=== PATIENT | male | born 1955 | race Caucasian/White ===

== ENCOUNTER 2023-02-20 06:14 | Day surgery (SDC) | payer OTHER, SELFPAY ==
--- NOTE | 2023-02-19 09:22 | HO.ANESPROP2 ---
HPI - Anesthesia Eval Consult details Narrative: 68yo M for Colonoscopy PMFSH Past Medical History Medical History Asthma Diabetes Elevated cholesterol Environmental allergies Fatty liver GERD (gastroesophageal reflux disease) History of anal fissures Surgical History Surgical History Hx of colonoscopy Social History Social History Patient Tobacco Use Status: Never used Tobacco Use of substances other than those prescribed or required for medical reasons: No Are you DNR?: No Advance Directives: No Advance Directives Information Provided: Yes Meds Allergies Allergy/AdvReac Type Severity Reaction Status Date / Time No Known Allergies Allergy Verified 02/20/23 06:29 Home Medications Medication Instructions Recorded Confirmed Last Taken Type albuterol sulfate 90 mcg/actuation 1 inh inhalation Q4-6H PRN 02/19/23 02/19/23 Unknown History aerosol inhaler Shortness Of Breath Or Wheezing aspirin 81 mg tablet,delayed 81 mg PO DAILY 02/19/23 02/19/23 02/15/23 History release atorvastatin 10 mg tablet 10 mg PO BEDTIME 02/19/23 02/19/23 Unknown History famotidine 40 mg tablet 40 mg PO BEDTIME 02/19/23 02/19/23 Unknown History fluticasone propionate 110 2 puff inhalation BID 02/19/23 02/19/23 Unknown History mcg/actuation HFA aerosol inhaler (Flovent HFA) levocetirizine 5 mg tablet (Xyzal) 5 mg PO DAILY 02/20/23 02/20/23 Unknown History Exam Exam Date and Time: February 19, [id number] Assessment and Plan Assessment Anesthesia Assessment: Chart Reviewed
[2023-02-20 06:32] VITALS: BMI 31.8
[2023-02-20 06:36] VITALS: BP 139/87; PULSE 91; RESP 15; TEMP 36.3; O2SAT 99
[2023-02-20] MEDS: Lactated Ringers 1,000 ML 100 ML IVCONT (06:51)
--- NOTE | 2023-02-20 07:27 | MHC.SHP ---
Pre-Procedural Eval Section A Date of Service: 02/20/23 Section B Chief Complaint: screening,fam hx of polyps Details of Present Illness: see H&P no changes Relevant Family History (Specify if Yes): No Relevant Social History: None Present Medications: None Medical History: No relevant PMH History of Previous Operations: No relevant previous surgery Allergies: Allergies Allergy/AdvReac Type Severity Reaction Status Date / Time No Known Allergies Allergy Verified 02/20/23 06:29 Review of Systems Sugical H&P ROS: Negative: Constitution, Cardiovascular, Respiratory, Neurological, Psychiatric, Hem-Onc, Allergic/Immunologic, Gastrointestinal, Genitourinary, Musculoskeletal, Integumentary, Endocrine and Eyes/Ears/Nose/Throat Exam Surgical H&P Exam: Normal: HEENT, Normal: Heart, Normal: Lungs, Normal: Extremities, Normal: Abdomen, Normal: Skin and Normal: Neurological Plan Diagnosis/Plan: Unchanged I have reviewed the history and physical and performed a pertinent physical examination on my patient. No changes have occurred unless specified. Time Spent With Patient Time: Total time managing care of this patient today ____ minutes.
--- NOTE | 2023-02-20 07:33 | HO.ANESPROP2 ---
[facility] Past Medical History Medical History Asthma Diabetes Elevated cholesterol Environmental allergies Fatty liver GERD (gastroesophageal reflux disease) History of anal fissures Surgical History Surgical History Hx of colonoscopy Social History Social History Patient Tobacco Use Status: Never used Tobacco Use of substances other than those prescribed or required for medical reasons: No Are you DNR?: No Advance Directives: No Advance Directives Information Provided: Yes Meds Allergies Allergy/AdvReac Type Severity Reaction Status Date / Time No Known Allergies Allergy Verified 02/20/23 06:29 Active Medications: Current Medications Albuterol Sulfate (Albuterol Sulfate (0.083%) 2.5 Mg/3 Ml Vial.Neb) 2.5 mg INHALE ONCE PRN PRN Reason: Shortness of Breath/Wheezing Lactated Ringer's (Lr) 1,000 mls @ 100 mls/hr IVCONT .Q10H TONYA Last Admin: 02/20/23 06:51 Dose: 100 mls/hr Home Medications Medication Instructions Recorded Confirmed Last Taken Type albuterol sulfate 90 mcg/actuation 1 inh inhalation Q4-6H PRN 02/19/23 02/19/23 Unknown History aerosol inhaler Shortness Of Breath Or Wheezing aspirin 81 mg tablet,delayed 81 mg PO DAILY 02/19/23 02/19/23 02/15/23 History release atorvastatin 10 mg tablet 10 mg PO BEDTIME 02/19/23 02/19/23 Unknown History famotidine 40 mg tablet 40 mg PO BEDTIME 02/19/23 02/19/23 Unknown History fluticasone propionate 110 2 puff inhalation BID 02/19/23 02/19/23 Unknown History mcg/actuation HFA aerosol inhaler (Flovent HFA) levocetirizine 5 mg tablet (Xyzal) 5 mg PO DAILY 02/20/23 02/20/23 Unknown History Exam Exam Date and Time: February 20, 2023 0733 Height,Weight and Vital Signs: Height 5 ft 6 in Weight 89.358 kg Last Vital Signs Temp 97.4 F 02/20/23 06:36 Pulse 91 02/20/23 06:36 Resp 15 02/20/23 06:36 BP 139/87 02/20/23 06:36 Pulse Ox 99 02/20/23 06:36 O2 Del Method Room Air 02/20/23 06:36 Airway Mallampati Class: III TM Dist: >3cm Neck ROM: Full Heart: RRR Lungs: CTA Assessment and Plan Final Anesthetic Review ASA Class: II Final Preanesthetic Review: Meds/Allgs Chart Reviewed and Consent Obtained/Reviewed Patient Risk: Low Procedure Risk: Low Anesthetic Plan Anesthetic Plan: MAC: Disposition: Standard PACU
--- NOTE | 2023-02-20 08:08 | PM.OP ---
Brief Operative Note Date of Service: 02/20/23 Pre-op diagnosis: screening Post-op diagnosis: same Procedure: colonoscopy Surgeon: Evan Mathur Anesthesia: MAC Was an Ceiling Cleaner used for this Procedure?: No Estimated blood loss (mL): 0 Pathology: none sent Condition: stable Disposition: PACU
[2023-02-20 08:18] VITALS: BP 95/53; PULSE 80; RESP 17; TEMP 36.3; O2SAT 99
[2023-02-20 08:33] VITALS: BP 106/65; PULSE 79; RESP 16; O2SAT 97
[2023-02-20 08:48] VITALS: BP 113/80; PULSE 73; RESP 16; O2SAT 98
[2023-02-20 09:03] VITALS: BP 125/86; PULSE 69; RESP 16; TEMP 36.3; O2SAT 98
--- NOTE | 2023-02-20 09:24 | HO.POSTANES ---
Post Anesthesia Evaluation Post Anesthesia Evaluation Vital Signs: Vital Signs Temp Pulse Resp BP Pulse Ox O2 Del Method O2 Flow Rate 02/20/23 09:03 97.3 F 69 16 125/86 98 Room Air 02/20/23 08:48 73 16 113/80 98 Room Air 02/20/23 08:33 79 16 106/65 97 Room Air 02/20/23 08:18 97.4 F 80 17 95/53 L 99 Nasal Cannula 4 02/20/23 06:36 97.4 F 91 15 139/87 99 Room Air Anesthesia: Monitored Mental Status: Awake Pain Control: Satisfactory Nausea/Vomiting: None Hydration: Adequate Anesthesia-Related Issues: No Anes. Related Issues
--- NOTE | 2023-02-20 09:34 | OP_ITS ---
DATE OF SERVICE: 02/20/2023 SURGEON: Evan Mathur MD INDICATIONS: Colon cancer screening and family history of colon polyps. PREOPERATIVE DIAGNOSIS: POSTOPERATIVE DIAGNOSIS: PROCEDURE PERFORMED: Colonoscopy to the terminal ileum. ESTIMATED BLOOD LOSS: COMPLICATIONS: ANESTHESIA: Monitored anesthesia care. ASSISTANTS: SPECIMENS: DESCRIPTION OF PROCEDURE: A history and physical was performed. The risks and benefits of the procedure were explained to the patient. Informed consent was obtained. The patient was placed in the left lateral decubitus position. A digital rectal exam was performed and was found to be normal. The Olympus pediatric video colonoscope was introduced into the rectum and advanced to the cecum without difficulty. The cecum was identified by transillumination, palpation, and identification of the ileocecal valve. Examination was performed. The scope was removed. He tolerated the procedure well and was retuned to the recovery area in stable condition. FINDINGS: The terminal ileum was normal. The visualized colonic mucosa was normal. The quality of the prep was good. No polyps were identified. There were a moderate-sized internal hemorrhoids on retroflexed examination. IMPRESSION: Normal colonoscopy. RECOMMENDATION: 1. Follow up as needed. 2. Repeat colonoscopy should be considered in 5 years because of family history of colon polyps. MD MICHAEL Calderón/MODL / [id number]
== END 2023-02-20 10:50 | disposition home or self-care (01) ==
PROVIDERS: PCP Internal Medicine; Visit Provider Internal Medicine Gastroenterology
PROC: 0DJD8ZZ Inspection of Lower Intestinal Tract, Via Natural or Artificial Opening Endoscopic (ICD-10-PCS; CPT 45378; principal; 2023-02-20 07:30)
DX: Z12.11 Encounter for screening for malignant neoplasm of colon (principal); Z83.71 Family history of colonic polyps; K64.8 Other hemorrhoids; K21.9 Gastro-esophageal reflux disease without esophagitis; E11.9 Type 2 diabetes mellitus without complications; E78.5 Hyperlipidemia, unspecified; J45.909 Unspecified asthma, uncomplicated; Z79.51 Long term (current) use of inhaled steroids; Z79.82 Long term (current) use of aspirin; Z79.899 Other long term (current) drug therapy
CPT/HCPCS: 45378